=== PATIENT | female | born 1975 | race Caucasian/White ===

== ENCOUNTER 2021-04-02 05:37 | Inpatient (IN) | payer OTHER ==
[2021-03-27 15:32] LABS: BASOPHILS % (AUTO) 0.6 % (0-1); EOSINOPHILS # (AUTO) 0.1 X10'3 (0-0.9); EOSINOPHILS % (AUTO) 1.2 % (0-6); LYMPHOCYTES # (AUTO) 1.8 X10'3 (1.1-4.8); LYMPHOCYTES % (AUTO) 26.6 % (21-51); MEAN CORPUSCULAR HGB CONC 33.9 g/dL (33.0-36.5); MEAN CORPUSCULAR VOLUME 91.5 FL (78-98); MONOCYTES # (AUTO) 0.5 X10'3 (0-0.9); MONOCYTES % (AUTO) 7.1 % (2-12); NEUTROPHILS # (AUTO) 4.4 X10'3 (1.8-7.7); NEUTROPHILS % (AUTO) 64.5 % (42-75); PRE OP HEMATOCRIT 42.2 % (35.0-45.0); PRE OP HEMOGLOBIN 14.3 g/dL (12.0-16.0); PRE OP PLATELET COUNT 253 X10'3 (140-440); RED BLOOD COUNT 4.61 X10'6 (4.20-5.60); RED CELL DISTRIBUTION WIDTH 13.1 % (11.5-14.5)
[2021-03-27 15:39] LABS: HCG SERUM QL NEGATIVE
[2021-03-27 15:46] LABS: ALBUMIN 4.1 G/DL (3.4-5.0); ALBUMIN/GLOBULIN RATIO 1.1 (1.1-1.5); ALKALINE PHOSPHATASE 82 IU/L (46-116); BLOOD UREA NITROGEN 16 MG/DL (7-18); BUN/CREATININE RATIO 21.1 (6.6-38.0); CALCIUM 9.2 MG/DL (8.5-10.1); CHLORIDE 107 MMOL/L (99-107); CREATININE 0.76 MG/DL (0.40-0.90); PRE OP ALT 30 U/L (30-65); PRE OP ANION GAP 7 (8-16); PRE OP AST 27 U/L (10-37); PRE OP BILIRUB, TOTAL 0.6 MG/DL (0.0-1.0); PRE OP GLUCOSE 87 MG/DL (70-104); PRE OP POTASSIUM 3.6 MMOL/L (3.4-5.1); PRE OP SODIUM 144 MMOL/L (135-145); TOTAL CARBON DIOXIDE 30.3 MMOL/L (24-32); TOTAL PROTEIN 7.9 G/DL (6.4-8.2); eGFR 82 ML/MIN
[2021-04-02] VITALS (20 sets, daily range): BP systolic 99–118; BP diastolic 51–85
[~2021-04-02] VITALS: Ht 177.8 cm; Wt 96.3 kg
[~2021-04-02 05:37] MED LIST: ASCO-139 PO; CHOL50004 PO; LACT1CAP65 PO; LORA-641 PO; MAGN400C PO; MELA5TAB12 PO; SERT20OR6 PO; [UNRECOGNIZED DRUG - MIXTURE] PO; cefazolin/dext.iso 2gm/50ml 50 ML IV ONE; famotidine 20mg tablet PO ONE; ringers solution, lacted 1,000 ML IV SCH; tranexamic acid 1gm/0.7% sal. 100 ML IV ONE; vancomycin 1,500 MG in NS 300ml IV soln IV ONE
[2021-04-02] MEDS ORDERED: cefazolin/dext.iso 2gm/50ml 50 ML IV ONE (06:00)
[2021-04-02] MEDS ORDERED: vancomycin 1,000mg inj ONE (06:37)
[2021-04-02] MEDS ORDERED: Thrombin (Bovine) 5,000 unit vial TP ONE (06:37)
[2021-04-02] MEDS ORDERED: ROPIVAcaine inj 200 MG, ketorolac trometh inj. 30 MG, epiNEPHrine inj 0.6 MG, morphine ... IU ONE ×5 (06:45)
[2021-04-02] MEDS ORDERED: fentaNYL/PF 50MCG/1 ML 2ML syringe ONE ×2 (07:22→08:00)
[2021-04-02] MEDS ORDERED: MIDAZolam 1 MG/ML 5ML VIAL ONE (07:22)
[2021-04-02] MEDS ORDERED: propofol inj 20 ML IV ONE ×2 (07:24→08:18)
[2021-04-02] MEDS ORDERED: LIDOcaine 1%/PF 5ML 10 MG/ML VIAL ONE (07:24)
[2021-04-02] MEDS ORDERED: meperidine/PF 25mg/ml syringe IV PRN ×2 (08:35)
[2021-04-02] MEDS ORDERED: morphine 4 MG/ML inj SYRINge IV PRN (08:35)
[2021-04-02] MEDS ORDERED: proCHLORperazine 10 MG/2 ml inj IV PRN (08:35)
[2021-04-02] MEDS ORDERED: morphine 2 MG/ML inj. syringe IV PRN (08:35)
[2021-04-02] MEDS ORDERED: ondansetron/PF 4mg/2ml inj IV PRN ×2 (08:35→10:00)
[2021-04-02] MEDS ORDERED: ROPIVAcaine 0.2% (10 MG/5 ML) BOLUS INJECTION ADDCANAL PRN (08:35)
[2021-04-02] MEDS ORDERED: ringers solution, lacted 1,000 ML IV SCH (08:35)
[2021-04-02] MEDS ORDERED: dexamethasone sod phosphate 4mg/ml inj. ONE (09:06)
[2021-04-02] MEDS ORDERED: ROPIVAcaine 0.5% (5mg/ml) 30ml vial ONE (09:06)
[2021-04-02] MEDS ORDERED: neostigmine methylsulfate 1 MG/ML 10ml vial ONE (09:06)
[2021-04-02] MEDS ORDERED: rocuronium 10mg/ml inj IV ONE (09:06)
[2021-04-02] MEDS ORDERED: ondansetron/PF 4mg/2ml inj ONE (09:06)
[2021-04-02] MEDS ORDERED: glycopyrrolate 0.2mg/ml inj ONE (09:06)
[2021-04-02] MEDS ORDERED: diphenhydrAMINE 50 mg/ml inj ONE (09:20)
[2021-04-02] MEDS ORDERED: meperidine/PF 25mg/ml syringe ONE (09:43)
[2021-04-02] MEDS ORDERED: diphenhydrAMINE 25mg capsule PO PRN ×2 (10:00)
[2021-04-02] MEDS ORDERED: HYDROmorphone inj. 0.5 MG/0.5 ML DISP.SYRIN IV PRN (10:00)
[2021-04-02] MEDS ORDERED: bisacodyl 10mg suppository rectal RC PRN (10:00)
[2021-04-02] MEDS ORDERED: magnesium hydroxide 30ml (MOM) UD suspension PO PRN (10:00)
[2021-04-02] MEDS ORDERED: oxyCODONE IR 5mg (immed. release) tablet PO PRN (10:00)
[2021-04-02] MEDS ORDERED: acetaminophen 325mg tablet PO PRN (10:00)
--- NOTE | 2021-04-02 10:02 | NUR ---
ASSUME CARE PT AWAKE ALERT DROWSY VSS NO DISTRESS DENIES PAIN FM 10L SAT 100% ENC TCDB. IV RIGHT HAND 20G INTACT IV INFUSING WITHOUT DIFF. DRESSING TO RIGHT KNEE CDI +CMS TO THE RIGHT FOOT, ICE TO SURG SITE, CONT TO MONITOR. Addendum: 04/02/21 at 1016 by Marilynn Liz RN Amended: Links added.
[2021-04-02] MEDS: meperidine/PF 25mg/ml syringe IV PRN ×2 (10:19→11:21)
[2021-04-02] MEDS: ROPIVAcaine 0.2%/PF PUMP/bolus 545 ML ADDCANAL SCH (10:22)
[2021-04-02] MEDS ORDERED: HYDROmorphone/PF 0.2 MG/ML SYRINGE IV PRN (11:05)
[2021-04-02] MEDS: HYDROmorphone/PF 0.2 MG/ML SYRINGE IV PRN ×2 (11:11→11:46)
--- NOTE | 2021-04-02 11:54 | NUR ---
PT AWAKE ALERT VSS STATES PAIN GETTING BETTER TO RIGHT KNEE, FRANDY POS MEETS CRITERIA TO DC TO ROOM WAITING FOR A BED. Addendum: 04/02/21 at 1154 by Marilynn Liz RN Amended: Links added.
--- NOTE | 2021-04-02 12:30 | NUR ---
Received patient to room 344B accompanied by x2 staff and spouse. Patient drowsy but easily awakens to voice. ONQ ball to right knee, right knee island dressing cdi with knee wrap and cold powder pack. Patient belongings at bedside with spouse. Oriented patient to room and call light. Call light within reach. Bed low and locked. Pain med given as ordered for complaint of pain. Will continue to monitor.
[2021-04-02] MEDS: gabapentin 300mg capsule PO SCH ×2 (12:45→20:49)
[2021-04-02] MEDS: oxyCODONE IR 5mg (immed. release) tablet PO PRN ×3 (12:45→23:25)
[2021-04-02] MEDS ORDERED: tranexamic acid 1gm/0.7% sal. 100 ML IV ONE (13:00)
[2021-04-02] MEDS: acetaminophen 325mg tablet PO SCH ×2 (15:24→20:49)
[2021-04-02] MEDS: HYDROmorphone 1 mg/ml syringe IV PRN (15:33)
[2021-04-02] MEDS: ceFAZolin/D5W- 1GM premix 50 ML IV SCH ×2 (16:07→23:22)
[2021-04-02] MEDS: potassium cl 20mEq in 1/2 NS 1,000 ML IV SCH ×2 (18:00→19:00)
--- NOTE | 2021-04-02 18:45 | NUR ---
Problems reprioritized. Patient report given, questions answered & plan of care reviewed with Mckay pratt.
[2021-04-02] MEDS ORDERED: vancomycin/NS 1 GM ADD-VANTAGE 250 ML IV SCH (20:00)
[2021-04-02] MEDS ORDERED: sennosides 8.6mg tablet PO SCH (21:00)
[2021-04-03] VITALS: BP 96/46
[2021-04-03] MEDS: acetaminophen 325mg tablet PO SCH ×2 (02:11→08:11)
[2021-04-03] MEDS: oxyCODONE IR 5mg (immed. release) tablet PO PRN (03:38)
[2021-04-03] MEDS: potassium cl 20mEq in 1/2 NS 1,000 ML IV SCH (03:45)
[2021-04-03 04:00] VITALS: BP 105/39
[2021-04-03] MEDS: HYDROmorphone 1 mg/ml syringe IV PRN (05:45)
[2021-04-03 06:07] LABS: ANION GAP 7 (8-16); CHLORIDE 105 MMOL/L (99-107); POTASSIUM 3.9 MMOL/L (3.5-5.1); SODIUM 138 MMOL/L (135-145); TOTAL CARBON DIOXIDE 25.8 MMOL/L (24-32)
[2021-04-03 06:09] LABS: RED BLOOD COUNT 3.56 X10'6 (4.20-5.60); WHITE BLOOD COUNT 16.1 X10'3 (4.5-11.0)
[2021-04-03 06:10] LABS: BASOPHILS % (AUTO) 0.1 % (0-1); EOSINOPHILS % (AUTO) 0 % (0-6); HEMATOCRIT 32.8 % (35.0-45.0); LYMPHOCYTES # (AUTO) 1.5 X10'3 (1.1-4.8); LYMPHOCYTES % (AUTO) 9.6 % (21-51); MEAN CORPUSCULAR HGB CONC 33.7 g/dL (33.0-36.5); MEAN PLATELET VOLUME 9.5 FL (7.4-10.4); MONOCYTES # (AUTO) 1.5 X10'3 (0-0.9); MONOCYTES % (AUTO) 9.6 % (2-12); NEUTROPHILS # (AUTO) 12.9 X10'3 (1.8-7.7); NEUTROPHILS % (AUTO) 80.7 % (42-75); PLATELET COUNT 205 X10'3 (140-440); RED CELL DISTRIBUTION WIDTH 12.7 % (11.5-14.5)
--- NOTE | 2021-04-03 06:19 | NUR ---
Problems reprioritized. Patient report given, questions answered & plan of care reviewed with HALLE Marquez.
--- NOTE | 2021-04-03 06:49 | NUR ---
Patient in room [facility] 344. I have received report from HALLE Thurston and had the opportunity to ask questions and assume patient care.
[2021-04-03 07:00] VITALS: BP 101/42
[2021-04-03] MEDS ORDERED: enoxaparin 40mg/0.4ml syringe SQ SCH (08:00)
[2021-04-03] MEDS: gabapentin 300mg capsule PO SCH (08:11)
[2021-04-03 11:00] VITALS: BP 101/47
[2021-04-03] MEDS ORDERED: HYDROcodone/acetaminophen 10/325mg tab PO ONE (11:20)
[2021-04-03] MEDS: ROPIVAcaine 0.2%/PF PUMP/bolus 545 ML ADDCANAL SCH (12:21)
[2021-04-03] MEDS ORDERED: celeCOXIB 100mg capsule PO SCH (20:00)
[2021-04-03] MEDS ORDERED: MAGNESIUM OXIDE PO SCH (21:00)
[2021-04-03] MEDS ORDERED: non-formulary drug (Melatonin 1 TAB) PO SCH (21:00)
[2021-04-03] MEDS ORDERED: sertraline 50mg tablet PO SCH (21:00)
[2021-04-04] MEDS ORDERED: [UNRECOGNIZED DRUG - MIXTURE] PO SCH (08:00)
[2021-04-04] MEDS ORDERED: loratadine 10mg tablet PO SCH (08:00)
[2021-04-04] MEDS ORDERED: lactobacillus rhamnosus 10,000 MMU CELLS/CAPSULE PO SCH (08:00)
[2021-04-04] MEDS ORDERED: acetaminophen 325mg tablet PO PRN (10:00)
== END 2021-04-03 14:11 | disposition home or self-care (01) | DRG 470 ==
LOC: PAS IN 05:37 → UNDOADMIN 05:37 → PAS IN 10:05 → SUR 3N 12:15
PROVIDERS: ADMIT Orthopaedic Surgery; ATTEND Orthopaedic Surgery
PROC: 3E0T3BZ Introduction of Anesthetic Agent into Peripheral Nerves and Plexi, Percutaneous Approach (ICD-10-PCS; 2021-04-02)
PROC: 3E0T33Z Introduction of Anti-inflammatory into Peripheral Nerves and Plexi, Percutaneous Approach (ICD-10-PCS; 2021-04-02)
PROC: 0SRC0JA Replacement of Right Knee Joint with Synthetic Substitute, Uncemented, Open Approach (ICD-10-PCS; principal; 2021-04-02 07:24)
DX: M17.11 Unilateral primary osteoarthritis, right knee (principal); D62 Acute posthemorrhagic anemia; E06.3 Autoimmune thyroiditis; Z79.899 Other long term (current) drug therapy
CPT/HCPCS: Z7506; Z7508; 36415; 73560; 80051; 80053; 82948; 84443; 84703; 85025; 87081; 93005; 97110; 97116; 97161; 97530; A4215; A7000; C1776; C9250; G0378; J0690; J1100; J1170; J1200; J1650; J2175; J2250; J2270; J2405; J2704; J2710; J2795; J3010; J3370; J3480; J3490; J7040; J7120; U0003; U0005

== ENCOUNTER 2021-04-16 14:45 | Emergency (ER) | payer OTHER ==
[~2021-04-16] VITALS: Ht 177.8 cm; Wt 91.0 kg
[~2021-04-16 14:45] MED LIST changes: -cefazolin/dext.iso 2gm/50ml 50 ML IV ONE; -famotidine 20mg tablet PO ONE; -ringers solution, lacted 1,000 ML IV SCH; -tranexamic acid 1gm/0.7% sal. 100 ML IV ONE; -vancomycin 1,500 MG in NS 300ml IV soln IV ONE
[2021-04-16 15:05] VITALS: BP 122/65
[2021-04-16] MEDS ORDERED: CEPH250T PO (16:21)
== END 2021-04-16 16:35 | disposition home or self-care (01) ==
LOC: ER 14:46
DX: G89.18 Other acute postprocedural pain (principal); M79.661 Pain in right lower leg; Z98.890 Other specified postprocedural states; Z79.2 Long term (current) use of antibiotics; Z79.899 Other long term (current) drug therapy
CPT/HCPCS: 93971; 99284